=== PATIENT | female | born 1945 | race Caucasian/White ===

== ENCOUNTER 2022-08-05 16:50 | Inpatient (IN) | payer MEDICARE, MEDICAID ==
[~2022-08-05] VITALS: Ht 160 cm; Wt 48.1 kg
[2022-08-05] MEDS ORDERED: MORPHINE SULFATE 4 MG/ML CPJ (NOT FOR IM USE) IV STA (17:25)
[2022-08-05] MEDS ORDERED: ONDANSETRON HCL 4MG/2ML INJ IV STA (17:25)
[2022-08-05] MEDS ORDERED: PIPERACILLIN/TAZ 3.375G PREMIX 50 ML IV ONE (17:30)
[2022-08-05] MEDS ORDERED: SODIUM CHLORIDE 0.9% 1000ML BAG (SEPSIS BOLUS) IV ONE (17:30)
[2022-08-05] MEDS ORDERED: VANCOMYCIN 1G PREMIX 200 ML IV ONE (17:30)
[2022-08-05] MEDS ORDERED: ONDANSETRON HCL 4MG/2ML INJ IV NR (20:00)
[2022-08-05] MEDS ORDERED: MORPHINE SULFATE 4 MG/ML CPJ (NOT FOR IM USE) IV NR (20:00)
[2022-08-05 21:42] LABS: HEMATOCRIT. 33.4 % (36.0-48.0); HEMOGLOBIN. 10.2 g/dL (12.0-16.0); MEAN CORPUSCULAR HEMOGLOBIN 28.8 pg (28.0-32.0); MEAN CORPUSCULAR VOLUME 94.6 fL (81.0-99.0); MEAN PLATELET VOLUME 8.2 fl (7.4-10.4); PLATELET 440 x1000/uL (130-400); RED BLOOD CELL COUNT 3.53 mill/uL (4.2-5.4); RED CELL DISTRIBUTION WIDTH 18.2 % (11.6-14.6)
[2022-08-05 21:51] LABS: CHLORIDE 105 mEq/L (98-107)
[2022-08-05] MEDS ORDERED: SODIUM POLYSTYRENE SULFONATE 15 G/60 ML BOT PO ONE (22:30)
[2022-08-05] MEDS ORDERED: ALBUTEROL (0.083%) 2.5MG/3ML NEB HHN ONE (22:30)
[2022-08-05] MEDS ORDERED: ASPIRIN 81MG TABLET PO ONE (22:30)
[2022-08-05] MEDS ORDERED: SODIUM BICARBONATE 8.4% 1 MEQ/ML 50ML SYR IV ONE (22:30)
[2022-08-05] MEDS ORDERED: ONDANSETRON HCL 4MG/2ML INJ IV PRN (22:45)
[2022-08-05] MEDS ORDERED: ACETAMINOPHEN 325MG TABLET PO PRN (22:45)
[2022-08-05] MEDS ORDERED: CLONIDINE 0.1MG TABLET PO PRN (22:45)
[2022-08-05 22:56] LABS: PLATELET ESTIMATE INCREASED
[2022-08-05] MEDS ORDERED: NALOXONE HCL 0.4MG/ML VIAL IV PRN (23:00)
[2022-08-05] MEDS ORDERED: CEFTRIAXONE 1 G PREMIX 50 ML IV SCH (23:00)
[2022-08-06] MEDS ORDERED: VANCOMYCIN 1G PREMIX 200 ML IV NR (01:45)
[2022-08-06] MEDS ORDERED: PIPERACILLIN/TAZ 3.375G PREMIX 50 ML IV NR (01:45)
[2022-08-06 03:53] LABS: HEMATOCRIT. 30.7 % (36.0-48.0); HEMOGLOBIN. 9.4 g/dL (12.0-16.0); MEAN CORPUSCULAR VOLUME 94.3 fL (81.0-99.0); MEAN PLATELET VOLUME 8.6 fl (7.4-10.4); PLATELET 408 x1000/uL (130-400); RED BLOOD CELL COUNT 3.25 mill/uL (4.2-5.4); RED CELL DISTRIBUTION WIDTH 18.3 % (11.6-14.6)
[2022-08-06 04:22] LABS: PLATELET ESTIMATE NORMAL
[2022-08-06 05:00] VITALS: BP 100/41
[2022-08-06] MEDS ORDERED: SERT-112 PO (05:55)
[2022-08-06] MEDS ORDERED: PANT40TA51 PO (05:55)
[2022-08-06] MEDS ORDERED: LEVO175T7 PO (05:55)
[2022-08-06] MEDS ORDERED: METO25TA6 PO (05:55)
[2022-08-06] MEDS ORDERED: BENZ200C52 PO (05:55)
[2022-08-06] MEDS ORDERED: DICL100G31 TP (05:55)
[2022-08-06] MEDS ORDERED: ATOR40TA70 PO (05:55)
[2022-08-06] MEDS ORDERED: CALC667C PO (05:55)
[2022-08-06 05:57] VITALS: BP 100/41
[2022-08-06 06:13] LABS: HEPATITIS B SURFACE AB < 3.1 mIU/mL
[2022-08-06 06:24] LABS: HEPATITIS B SURFACE ANTIGEN NEGATIVE
[2022-08-06] MEDS: HEPARIN 5000 UNITS/ML VIAL SUBCUT SCH ×2 (08:50→21:08)
[2022-08-06] MEDS ORDERED: DIATR MEGLU/DIATRIZOATE SOLN 30ML PO SCH (09:45)
[2022-08-06] MEDS: HYDROCODONE/ACETAMINOPHEN 5/325MG TABLET PO PRN (11:25)
[2022-08-06 12:00] VITALS: BP 142/42
[2022-08-06] MEDS ORDERED: MORPHINE SULFATE 2 MG/ML CPJ (NOT FOR IM USE) IV PRN (14:15)
[2022-08-06 14:30] LABS: HEPATITIS B SURFACE ANTIGEN NEGATIVE
[2022-08-06] MEDS ORDERED: NA PHOS,M-B/NA PHOS,DI-BA ENEMA 118ML PR NR (15:30)
[2022-08-06] MEDS ORDERED: LACTULOSE 20G/30ML UDC PO NR (15:30)
[2022-08-06 16:00] VITALS: BP 104/29
[2022-08-06 20:00] VITALS: BP 124/40
[2022-08-06 23:15] VITALS: BP 118/53
[2022-08-07] VITALS (8 sets, daily range): BP systolic 97–152; BP diastolic 32–88
[2022-08-07] MEDS: MORPHINE SULFATE 2 MG/ML CPJ (NOT FOR IM USE) IV PRN ×3 (03:07→18:30)
[2022-08-07 07:05] LABS: HEMATOCRIT. 26.6 % (36.0-48.0); HEMOGLOBIN. 8.5 g/dL (12.0-16.0); MEAN CORPUSCULAR HEMOGLOBIN 29.3 pg (28.0-32.0); MEAN CORPUSCULAR VOLUME 91.5 fL (81.0-99.0); PLATELET 333 x1000/uL (130-400); RED CELL DISTRIBUTION WIDTH 17.7 % (11.6-14.6)
[2022-08-07] MEDS: HEPARIN 5000 UNITS/ML VIAL SUBCUT SCH ×2 (09:00→20:31)
[2022-08-07] MEDS ORDERED: POTASSIUM CHLORIDE 20MEQ TABLET SR PO NR (09:09)
[2022-08-07] MEDS ORDERED: LIDOCAINE HCL/PF 1% 10 MG/ML 5ML VIAL ONE (09:44)
[2022-08-07] MEDS: FOLIC ACID/VITAMIN B COMP W-C TABLET PO SCH (09:51)
[2022-08-07 10:35] LABS: PLATELET ESTIMATE NORMAL
[2022-08-07] MEDS ORDERED: IOHEXOL-300 50 ML BOTTLE IV ONE (10:49)
[2022-08-07] MEDS: HYDROCODONE/ACETAMINOPHEN 5/325MG TABLET PO PRN (15:03)
[2022-08-07] MEDS: CEFTRIAXONE 1,000 MG in DEXTROSE 5% WATER 50 ML IV SCH (15:05)
[2022-08-07] MEDS ORDERED: VANCOMYCIN 750MG PREMIX 150 ML IV NR (18:00)
[2022-08-08] VITALS: BP 135/36
[2022-08-08] MEDS: MORPHINE SULFATE 2 MG/ML CPJ (NOT FOR IM USE) IV PRN ×3 (01:54→15:38)
[2022-08-08 04:00] VITALS: BP 125/44
[2022-08-08 08:00] VITALS: BP 130/46
[2022-08-08 10:17] LABS: BASOPHILS % 0.5 % (0.0-2.0); EOSINOPHILS % 2.6 % (0.0-5.0); HEMATOCRIT. 29.9 % (36.0-48.0); HEMOGLOBIN. 9.4 g/dL (12.0-16.0); LYMPHOCYTES % 8.9 % (20.0-50.0); MEAN CORPUSCULAR VOLUME 92.2 fL (81.0-99.0); MEAN PLATELET VOLUME 8.3 fl (7.4-10.4); MONOCYTES % 8.1 % (2.0-8.0); NEUTROPHILS % 79.9 % (40.0-76.0); PLATELET 355 x1000/uL (130-400); RED BLOOD CELL COUNT 3.24 mill/uL (4.2-5.4); RED CELL DISTRIBUTION WIDTH 17.6 % (11.6-14.6)
[2022-08-08] MEDS: FOLIC ACID/VITAMIN B COMP W-C TABLET PO SCH (10:47)
[2022-08-08] MEDS: HEPARIN 5000 UNITS/ML VIAL SUBCUT SCH ×2 (10:48→21:19)
[2022-08-08 12:00] VITALS: BP 130/30
[2022-08-08] MEDS: PANTOPRAZOLE SODIUM 40 MG/VIAL IV SCH (14:17)
[2022-08-08] MEDS: CEFTRIAXONE 1,000 MG in DEXTROSE 5% WATER 50 ML IV SCH (14:17)
[2022-08-08 16:00] VITALS: BP 132/38
[2022-08-08 20:00] VITALS: BP 122/38
[2022-08-08] MEDS ORDERED: SENNOSIDES/DOCUSATE SOD 8.6/50MG TABLET PO PRN (21:00)
[2022-08-08] MEDS ORDERED: SENNOSIDES/DOCUSATE SOD 8.6/50MG TABLET PO SCH (21:00)
[2022-08-08] MEDS ORDERED: EPOETIN ALFA-EPBX 4,000 UNIT/ML VIAL SUBCUT SCH (21:00)
[2022-08-08 22:00] LABS: FERRITIN 355 ng/mL (10-291)
[2022-08-08 22:17] LABS: FOLIC ACID (FOLATE) SERUM > 20.00 ng/mL (>5.38)
[2022-08-08 22:18] LABS: VITAMIN B12 SERUM 560 pg/mL (211-911)
[2022-08-09] VITALS (13 sets, daily range): BP systolic 82–143; BP diastolic 29–66
[2022-08-09] MEDS: MORPHINE SULFATE 2 MG/ML CPJ (NOT FOR IM USE) IV PRN ×2 (03:24→11:12)
[2022-08-09] MEDS: HYDROCODONE/ACETAMINOPHEN 5/325MG TABLET PO PRN ×2 (05:29→21:52)
[2022-08-09] MEDS: FOLIC ACID/VITAMIN B COMP W-C TABLET PO SCH (10:46)
[2022-08-09] MEDS: PANTOPRAZOLE SODIUM 40 MG/VIAL IV SCH (10:46)
[2022-08-09] MEDS: HEPARIN 5000 UNITS/ML VIAL SUBCUT SCH ×2 (10:47→21:55)
[2022-08-09] MEDS: CYCLOBENZAPRINE 10MG TABLET PO SCH ×2 (14:09→22:00)
[2022-08-09 22:19] LABS: BASOPHILS % 0.4 % (0.0-2.0); EOSINOPHILS % 1.8 % (0.0-5.0); HEMATOCRIT. 28.9 % (36.0-48.0); HEMOGLOBIN. 9.4 g/dL (12.0-16.0); LYMPHOCYTES % 7.9 % (20.0-50.0); MEAN CORPUSCULAR HEMOGLOBIN 29.3 pg (28.0-32.0); MEAN CORPUSCULAR VOLUME 90.3 fL (81.0-99.0); MEAN PLATELET VOLUME 8.6 fl (7.4-10.4); MONOCYTES % 7.2 % (2.0-8.0); NEUTROPHILS % 82.7 % (40.0-76.0); PLATELET 374 x1000/uL (130-400); RED BLOOD CELL COUNT 3.19 mill/uL (4.2-5.4); RED CELL DISTRIBUTION WIDTH 17.8 % (11.6-14.6)
[2022-08-10] VITALS (7 sets, daily range): BP systolic 85–125; BP diastolic 25–59
[2022-08-10] MEDS: MORPHINE SULFATE 2 MG/ML CPJ (NOT FOR IM USE) IV PRN ×2 (00:45→10:42)
[2022-08-10] MEDS: HYDROCODONE/ACETAMINOPHEN 5/325MG TABLET PO PRN ×2 (02:56→04:55)
[2022-08-10] MEDS: CYCLOBENZAPRINE 10MG TABLET PO SCH (06:23)
[2022-08-10] MEDS: PANTOPRAZOLE SODIUM 40 MG/VIAL IV SCH (08:50)
[2022-08-10] MEDS: HEPARIN 5000 UNITS/ML VIAL SUBCUT SCH (08:51)
[2022-08-10] MEDS: FOLIC ACID/VITAMIN B COMP W-C TABLET PO SCH (08:55)
[2022-08-10] MEDS ORDERED: MORPHINE SULFATE 250 MG in DEXT 5% WATER 225 ML IV PRN (12:00)
[2022-08-11] VITALS: BP 86/44
[2022-08-11 04:00] VITALS: BP 74/23
[2022-08-11 08:00] VITALS: BP 70/30
[2022-08-11] MEDS ORDERED: LORAZEPAM 2MG/ML CPJ IV PRN (10:15)
[2022-08-11 20:00] VITALS: BP 96/69
[2022-08-12] VITALS: BP 81/46
[2022-08-12 04:00] VITALS: BP 107/90
== END 2022-08-12 11:55 | DRG 562 ==
LOC: ER 16:50 → MICUSO 22:31 → 7EST 08-06 05:20
PROVIDERS: ADMIT Internal Medicine Nephrology; ATTEND Internal Medicine Nephrology
PROC: 5A1D70Z Performance of Urinary Filtration, Intermittent, Less than 6 Hours Per Day (ICD-10-PCS; principal; 2022-08-06)
PROC: 5A1D70Z Performance of Urinary Filtration, Intermittent, Less than 6 Hours Per Day (ICD-10-PCS; 2022-08-07)
PROC: 02HV33Z Insertion of Infusion Device into Superior Vena Cava, Percutaneous Approach (ICD-10-PCS; 2022-08-07)
PROC: B5181ZA Fluoroscopy of Superior Vena Cava using Low Osmolar Contrast, Guidance (ICD-10-PCS; 2022-08-07)
PROC: B548ZZA Ultrasonography of Superior Vena Cava, Guidance (ICD-10-PCS; 2022-08-07)
PROC: 2W3AX1Z Immobilization of Right Upper Arm using Splint (ICD-10-PCS; 2022-08-07)
DX: S42.201A Unspecified fracture of upper end of right humerus, initial encounter for closed fracture (principal); J96.00 Acute respiratory failure, unspecified whether with hypoxia or hypercapnia; N18.6 End stage renal disease; E72.53 Primary hyperoxaluria; S32.301A Unspecified fracture of right ilium, initial encounter for closed fracture; Z68.1 Body mass index [BMI] 19.9 or less, adult; R78.81 Bacteremia; I12.0 Hypertensive chronic kidney disease with stage 5 chronic kidney disease or end stage renal disease; E87.20 Acidosis, unspecified; E87.5 Hyperkalemia; R62.7 Adult failure to thrive; Z20.822 Contact with and (suspected) exposure to COVID-19; D63.1 Anemia in chronic kidney disease; K59.00 Constipation, unspecified; M81.0 Age-related osteoporosis without current pathological fracture; D72.829 Elevated white blood cell count, unspecified; I46.9 Cardiac arrest, cause unspecified; Z66 Do not resuscitate; E78.00 Pure hypercholesterolemia, unspecified; E03.9 Hypothyroidism, unspecified; Z88.8 Allergy status to other drugs, medicaments and biological substances; Z99.2 Dependence on renal dialysis; Z91.15 Patient's noncompliance with renal dialysis; Z79.899 Other long term (current) drug therapy; Z98.84 Bariatric surgery status; W18.30XA Fall on same level, unspecified, initial encounter; Y93.89 Activity, other specified; Y92.89 Other specified places as the place of occurrence of the external cause; Y99.8 Other external cause status
CPT/HCPCS: 36415; 36573; 71045; 73060; 73200; 73560; 74018; 74176; 80048; 80053; 80202; 82607; 82728; 82746; 83540; 83550; 83605; 83880; 84145; 84484; 84550; 85025; 85044; 86705; 86706; 86709; 86803; 87340; 87426; 90935; 93005; 93306; 94644; 97162; 99285; A4565; C1725; C1769; C9113; J0696; J0885; J1644; J2060; J2270; J2405; J2543; J3370; J3490; J7030; J7060; Q9963; Q9967